=== PATIENT | male | born 1950 | race African-American/Black ===

== ENCOUNTER 2023-09-21 13:50 | Observation (INO) | payer OTHER ==
[2023-09-21] VITALS (11 sets, daily range): BP systolic 75–131; BP diastolic 56–70
[~2023-09-21] VITALS: Ht 198.1 cm; Wt 80.9 kg
[2023-09-21 14:25] LABS: BASO% 0.2 % (0-3); EOS% 1.6 % (0-8); HEMATOCRIT 23.1 % (39.0-50.0); IMMATURE GRANULOCYTES 1.8 % (0.0-5.0); LYMPH% 44.1 % (15-41); MEAN CELL VOLUME 82.8 fL CALC (80.0-100.0); MONO% 7.5 % (2-13); NEUT# 2.45 thou/uL (1.82-7.42); NEUT% 44.8 % (42-76); RED BLOOD COUNT 2.79 mill/uL (4.70-6.10); RED CELL DISTRI WIDTH 22.4 % (11.5-15.5)
[2023-09-21 14:47] LABS: ALBUMIN 4.3 g/dL (3.2-5.0); BILIRUBIN, TOTAL 0.9 mg/dL (0.2-1.3); CREATININE 1.6 mg/dL (0.7-1.3); POTASSIUM 4.6 mmol/l (3.5-5.1); TOTAL PROTEIN 7.1 g/dL (6.3-8.2)
[2023-09-21 14:49] LABS: HEMOGLOBIN 6.7 g/dl (14.0-18.0)
[2023-09-21] MEDS ORDERED: SODIUM CHLORIDE 0.9% 500 ML IV ONE (14:50)
[2023-09-21 15:17] LABS: TSH, 3RD GENERATION 2.74 uIU/mL (0.47 - 4.68)
[2023-09-21] MEDS ORDERED: MUCINEX600 MG PO ×2 (17:16→17:23)
[2023-09-21] MEDS ORDERED: TERAZOSIN1 MG PO (17:17)
[2023-09-21] MEDS ORDERED: FUROSEMIDE20 MG PO (17:17)
[2023-09-21] MEDS ORDERED: CLARITIN10 M1 PO (17:19)
[2023-09-21] MEDS ORDERED: [UNRECOGNIZED DRUG - OTHER] EX (17:19)
[2023-09-21] MEDS ORDERED: AFRIN PUMP MIS0.05 % NAB (17:20)
[2023-09-21] MEDS ORDERED: NAPROXEN500 MG PO (17:21)
[2023-09-21] MEDS ORDERED: FERROUS SULFAT325 MG PO (17:21)
[2023-09-21] MEDS ORDERED: LEVOTHYROXIN50 MCG PO (17:22)
[2023-09-21] MEDS ORDERED: VITAMIN B-121000 MCG PO (17:23)
[2023-09-21 18:08] LABS: URINE BILIRUBIN - DIPSTICK Negative (NEGATIVE); URINE BLOOD DIPSTICK Negative (NEGATIVE); URINE GLUCOSE - DIPSTICK Negative (NEGATIVE); URINE KETONE Negative (NEGATIVE); URINE LEUK ESTERASE Negative (NEGATIVE); URINE NITRITE - DIPSTICK Negative (Negative); URINE PROTEIN - DIPSTICK Negative (NEG-TRACE); URINE UROBILINOGEN - DIPSTICK 0.2 E.U./dL (0.2)
[2023-09-21 18:09] LABS: URINE COLOR Yellow
[2023-09-21] MEDS ORDERED: SODIUM CHLORIDE 0.9% 1,000 ML IV PRN (21:20)
[2023-09-21] MEDS ORDERED: ACETAMINOPHEN 325 MG/TAB PO PRN (21:20)
[2023-09-21] MEDS ORDERED: MAGNESIUM HYDROXIDE 30 ML UDC PO PRN (21:20)
[2023-09-22] VITALS (10 sets, daily range): BP systolic 11–120; BP diastolic 51–70
[2023-09-22 06:18] LABS: HEMATOCRIT 26.6 % (39.0-50.0); MEAN CELL VOLUME 82.9 fL CALC (80.0-100.0); MEAN CORPUSCULAR HGB 24.9 pG CALC (26.0-32.0); MEAN CORPUSCULAR HGB CONC 30.1 g/dL CAL (32.0-36.0); RED BLOOD COUNT 3.21 mill/uL (4.70-6.10); RED CELL DISTRI WIDTH 19.7 % (11.5-15.5)
[2023-09-22 06:47] LABS: ALBUMIN 3.6 g/dL (3.2-5.0); CREATININE 1.5 mg/dL (0.7-1.3); MAGNESIUM 1.7 mg/dL (1.6-2.3); POTASSIUM 4.3 mmol/l (3.5-5.1); TOTAL PROTEIN 5.8 g/dL (6.3-8.2)
[2023-09-22 06:52] LABS: BILIRUBIN, TOTAL 1.6 mg/dL (0.2-1.3)
[2023-09-22] MEDS ORDERED: GUAIFENESIN 200 MG/10 ML UDC PO PRN (08:35)
[2023-09-22] MEDS ORDERED: FERROUS SULFATE 325 MG/TAB PO SCH (09:00)
[2023-09-22] MEDS ORDERED: LEVOTHYROXINE SODIUM 50 MCG/TAB PO SCH (09:00)
== END 2023-09-22 11:40 | DRG 812 ==
LOC: ED 13:50 → ED-I 14:28 → ED 21:04 → ICU 21:05
PROVIDERS: Family Medicine; ADMIT Internal Medicine; ATTEND Internal Medicine
PROC: 30233N1 Transfusion of Nonautologous Red Blood Cells into Peripheral Vein, Percutaneous Approach (ICD-10-PCS; principal; 2023-09-21)
PROC: 30233N1 Transfusion of Nonautologous Red Blood Cells into Peripheral Vein, Percutaneous Approach (ICD-10-PCS; 2023-09-21)
DX: D64.9 Anemia, unspecified (principal); D69.6 Thrombocytopenia, unspecified; E03.9 Hypothyroidism, unspecified; N40.3 Nodular prostate with lower urinary tract symptoms; R59.0 Localized enlarged lymph nodes
CPT/HCPCS: P9016; Q9967